=== PATIENT | male | born 1985 | race Caucasian/White ===

== ENCOUNTER → 2020-03-11 15:16 | Outpatient (CLI) | payer OTHER, SELFPAY ==
--- NOTE | ~2020-03-11 | US_ITS ---
EXAMINATION: US soft tissue head and neck DATE: 03/11/2020 15:49 INDICATION: Localized swelling, mass or lump at the base of the left neck/supraclavicular region. TECHNIQUE: Multiple grayscale and Doppler ultrasound images of the neck at the region of concern were obtained. COMPARISON: None FINDINGS/IMPRESSION: No discrete masses or fluid collections identified at the region of concern. Reviewed, dictated and finalized at location [facility]. [facility] [employer]
== END ==
PROVIDERS: PCP Nurse Practitioner; Visit Provider Nurse Practitioner
DX: R22.1 Localized swelling, mass and lump, neck (principal)
CPT/HCPCS: 76536

== ENCOUNTER 2020-03-22 00:29 | Outpatient (CLI) | payer OTHER, SELFPAY ==
[2020-03-23 00:21] LABS: SARS-CoV-2 RNA PCR Negative
== END 2020-03-22 00:30 | disposition home or self-care (01) ==
LOC: ANHCOVIDDT 00:29
PROVIDERS: PCP Nurse Practitioner; Visit Provider Otolaryngology
DX: Z01.812 Encounter for preprocedural laboratory examination (principal); Z20.822 Contact with and (suspected) exposure to COVID-19
CPT/HCPCS: C9803; U0003; U0005

== ENCOUNTER 2020-03-25 01:06 | Day surgery (SDC) | payer OTHER, SELFPAY ==
[2020-03-19 09:11] VITALS: BMI 33.4
--- NOTE | 2020-03-24 09:02 | P.PNAN_ITS ---
Anes - Initial Pre Proc Eval Procedure: Operation Date: 03/25/20 14:00 Proposed Procedures p Septoplasty, - Luisito Devlin MD s Anterior Posterior Ethmoidectomy, Bilateral Maxilary Antrostomy - Luisito Devlin MD Date/Time: 03/24/20 09:02 Surgeon: Luisito Devlin MD Pre Op Diagnosis: Nasal Septal Deviation, Chronic Sinusitis Patient Data Age: 34 Gender: M Height: 1.88 m Weight: 118.18 kg Allergies Allergy/AdvReac Type Severity Reaction Status Date / Time No Known Allergies Allergy Verified 03/19/20 09:09 Home Medications Medication Instructions Recorded Confirmed Type fluoxetine 20 mg tablet 20 mg PO .COMPLEX 01/09/19 03/19/20 History clindamycin HCl 300 mg capsule 300 mg PO Q8H #30 cap 02/28/20 03/19/20 Rx fluticasone propionate [Flonase 1 spray NASAL DAILY PRN 03/19/20 03/19/20 History Allergy Relief] Patient hx anesthesia problems: none Family hx anesthesia problems: none PMFSH Past Medical History Medical History (Updated 03/24/20 @ 09:02 by Navneet Moulton DO) Hemorrhoids PTSD (post-traumatic stress disorder) Sleep apnea Surgical History Surgical History History of appendectomy (~2014) History of open reduction and internal fixation (ORIF) procedure (~2002) Left Femur History of toe surgery (~2014) Right 1st toe [place] teeth extracted Family History Family History Father Family history of cardiovascular disease Other Family history of malignant neoplasm Hypertension Malignant neoplasm of prostate Social History Social History Smoking packs per day: 1 Smoking cigarettes per day: 20.0 Years smoked: 6 Smoking pack-years: 6.00 Smoking status: Former smoker Tobacco type: cigarettes Second hand tobacco smoke exposure: No Additional smoking assessment comments: QUIT NOV 2019 Alcohol intake: current Drinks per week: 15 Substance use: never Substance use type: does not use Living arrangements: with family Gender identity (if verbalized by the patient): Male Spiritual care concerns: No Anes - Eval Final PreProcedure Day of Procedure 03/24/20 09:02 Patient weight: obese Heart: regular rate and rhythm Lungs: clear to auscultation and normal air movement Airway: Mallampati scale class II Neurological: alert and oriented Last oral intake: >/= 8 hours ASA classification: III Emergent: no Anesthetic plan: proceed Anesthesia type and monitoring: general ETT and standard monitoring Informed Consent: The patient's anesthetic plan and its attendant risks and benefits were discussed with the patient/family/POA. Questions were solicited and answers provided to the satisfaction of the patient/family/POA.
[2020-03-25] VITALS (10 sets, daily range): BP systolic 101–136; BP diastolic 52–93; PULSE 74–102; RESP 14–20; TEMP 36.8–37.1; O2SAT 95–100
--- NOTE | 2020-03-25 06:09 | PM.HPGS ---
History of Present Illness History of Present Illness Consent: Risks, benefits, and alternatives have been discussed and questions answered. Patient agrees to proceed with procedure. Chief complaint: Nasal Septal Deviation, Chronic Sinusitis Narrative: Bala Pena is a 34 year old male With recurring episodes of sinusitis he has difficulty breathing out of his nose he needs a septoplasty and anterior posterior ethmoid maxillary antrostomy Review of Systems Review of Systems: All systems reviewed & are unremarkable except as noted in HPI and below PMFSH Past Medical History Medical History (Updated 03/24/20 @ 09:02 by Navneet Moulton, ) Hemorrhoids PTSD (post-traumatic stress disorder) Sleep apnea Surgical History Surgical History History of appendectomy (~2014) History of open reduction and internal fixation (ORIF) procedure (~2002) Left Femur History of toe surgery (~2014) Right 1st toe [place] teeth extracted Family History Family History Father Family history of cardiovascular disease Other Family history of malignant neoplasm Hypertension Malignant neoplasm of prostate Social History Social History Smoking packs per day: 1 Smoking cigarettes per day: 20.0 Years smoked: 6 Smoking pack-years: 6.00 Smoking status: Former smoker Tobacco type: cigarettes Second hand tobacco smoke exposure: No Additional smoking assessment comments: QUIT NOV 2019 Alcohol intake: current Drinks per week: 15 Substance use: never Substance use type: does not use Living arrangements: with family Gender identity (if verbalized by the patient): Male Spiritual care concerns: No Meds Home Medications and Allergies Home Medications Medication Instructions Recorded Confirmed Type fluoxetine 20 mg tablet 20 mg PO .COMPLEX 01/09/19 03/19/20 History clindamycin HCl 300 mg capsule 300 mg PO Q8H #30 cap 02/28/20 03/19/20 Rx fluticasone propionate [Flonase 1 spray NASAL DAILY PRN 03/19/20 03/19/20 History Allergy Relief] Allergies Allergy/AdvReac Type Severity Reaction Status Date / Time No Known Allergies Allergy Verified 03/19/20 09:09 Assessment and Plan Additional Plan Plan is a nasal septoplasty and anterior posterior ethmoidectomy maxillary antrostomy
--- NOTE | 2020-03-25 06:10 | WPDHPUPDATE1 ---
History and Physical Update Update Date/Time: 03/25/20 06:10 History and Physical has been reviewed, including an updated exam of the patient. There are NO changes in the patient's condition. Risks, benefits, and alternatives have been discussed and questions answered. Patient agrees to proceed with procedure.
[2020-03-25] MEDS: ACETAMINOPHEN 500 MG TABLET 1000 MG PO (11:31)
[2020-03-25] MEDS: LACTATED RINGERS 1,000 ML 30 ML IV CONT ×2 (11:35→12:49)
[2020-03-25] MEDS: LIDO 1%/EPINEPHRINE 1:100,000 50 ML VIAL 13 ML INFILTRATE (12:44)
--- NOTE | 2020-03-25 12:45 | PM.PROC ---
Procedure Note - Detailed Date of procedure: 03/25/20 Pre-op diagnosis: Nasal Septal Deviation, Chronic Sinusitis Post-op diagnosis: same Procedure performed: Septoplasty bilateral maxillary antrostomy bilateral anterior ethmoid Description of procedure: Patient was prepped and draped fashion anesthesia cocaine impregnated cottonoids were placed in the nose injected xylocaine with adrenaline a right juan pablo transection was made left anterior and posterior tunnels elevated the bony cartilaginous septum was removed and the bony deviation removed with small chisel a very hard bone ring spur was chiseled off this swelling the cartilage bony remnants of the midline incision closed with 4 0 chromic and Vo splints placed in by above the inferior turbinates on both sides were outfractured nasal antral windows were created a small anterior ethmoid openings were placed on both sides after the Vo splint was sutured in the patient was awakened returned to recovery in good condition Anesthesia: GLMA Surgeon: Luisito Devlin MD Estimated blood loss (mL): 10 Drains: No Packing: Yes Pathology: none sent Complications: No immediate complications Condition: stable Disposition: PACU Findings: Septal deviation
== END 2020-03-25 14:37 | disposition home or self-care (01) ==
PROVIDERS: PCP Nurse Practitioner; Visit Provider Otolaryngology
PROC: (CPT 30520; principal; 2020-03-25 14:00)
PROC: (CPT 31254; 2020-03-25 14:00)
DX: J34.2 Deviated nasal septum (principal); J32.9 Chronic sinusitis, unspecified; G47.33 Obstructive sleep apnea (adult) (pediatric); F43.10 Post-traumatic stress disorder, unspecified; Z87.891 Personal history of nicotine dependence; E66.9 Obesity, unspecified; Z68.33 Body mass index [BMI] 33.0-33.9, adult
CPT/HCPCS: 31254; 31256; 30520; A9270; J0330; J1100; J2250; J2405; J2704; J3010; J7120

== ENCOUNTER 2020-05-08 10:24 | Outpatient (CLI) | payer OTHER, SELFPAY ==
--- NOTE | 2020-05-08 10:42 | EST_ITS ---
Patient Info Name: Bala Pena Age: 34 years : 1985 Gender: Male Ht: 74 in Wt: 260 lbs BSA: 2.52 m2 Exam Date: 05/08/2020 11:08 AM Exam Location: [facility] Patient Status: Outpatient Admit Date: 05/08/2020 Staff Ordering Physician: Homa Bañuelos NP Attending Provider: Aden Olivier MD Exercise Technologist: Valentino Munroe RDCS, RT Exercise Physician: Johnnie Hobson DO Exam Type: CA stress test treadmill Study Info A treadmill exercise stress test was performed. Summary 1. 1. Negative Jordan exercise stress test for ischemic ST changes by ECG criteria. 2. 2. Mildly reduced functional capacity, achieving 10 METs of workload. 3. 3. Hypertensive response to exercise. 4. 4. Appropriate HR response to exercise. 5. 5. Appropriate HR recovery at 1 minute post exercise. 6. 6. No imaging with stress testing. 7. 7. Patient informed of the above results. Protocol: [facility] Stress ECG Details Stage: REST Duration (min): 1 min : 51 sec Speed (mph): 0.0 Grade (%): 0 HR (bpm): 80 SBP (mmHg): --- DBP (mmHg): --- METS: --- Stage: REST Duration (min): 8 min : 48 sec Speed (mph): 0.0 Grade (%): 0 HR (bpm): 79 SBP (mmHg): --- DBP (mmHg): --- METS: --- Stage: STAGE 1 Duration (min): 1 min : 0 sec Speed (mph): 1.7 Grade (%): 10 HR (bpm): 117 SBP (mmHg): --- DBP (mmHg): --- METS: --- Stage: STAGE 1 Duration (min): 2 min : 0 sec Speed (mph): 1.7 Grade (%): 10 HR (bpm): 132 SBP (mmHg): --- DBP (mmHg): --- METS: --- Stage: STAGE 1 Duration (min): 3 min : 0 sec Speed (mph): 1.7 Grade (%): 10 HR (bpm): 133 SBP (mmHg): 171 DBP (mmHg): 65 METS: --- Stage: STAGE 2 Duration (min): 1 min : 0 sec Speed (mph): 2.5 Grade (%): 12 HR (bpm): 143 SBP (mmHg): 171 DBP (mmHg): 65 METS: --- Stage: STAGE 2 Duration (min): 2 min : 0 sec Speed (mph): 2.5 Grade (%): 12 HR (bpm): 151 SBP (mmHg): 183 DBP (mmHg): 53 METS: --- Stage: STAGE 2 Duration (min): 3 min : 0 sec Speed (mph): 2.5 Grade (%): 12 HR (bpm): 157 SBP (mmHg): 183 DBP (mmHg): 53 METS: --- Stage: STAGE 3 Duration (min): 1 min : 0 sec Speed (mph): 3.4 Grade (%): 14 HR (bpm): 169 SBP (mmHg): 183 DBP (mmHg): 53 METS: --- Stage: STAGE 3 Duration (min): 2 min : 0 sec Speed (mph): 3.4 Grade (%): 14 HR (bpm): 173 SBP (mmHg): 217 DBP (mmHg): 63 METS: --- Stage: STAGE 3 Duration (min): 3 min : 0 sec Speed (mph): 3.4 Grade (%): 14 HR (bpm): 181 SBP (mmHg): 227 DBP (mmHg): 91 METS: --- Stage: RECOVERY Duration (min): 1 min : 0 sec Speed (mph): 0.0 Grade (%): 0 HR (bpm): 146 SBP (mmHg): 227 DBP (mmHg): 91 METS: --- Stage: RECOVERY Duration (min): 2 min : 0 sec Sp
== END 2020-05-08 10:25 | disposition home or self-care (01) ==
LOC: ANHCARD 10:25
PROVIDERS: PCP Nurse Practitioner; Visit Provider Family Medicine
DX: R07.9 Chest pain, unspecified (principal)
CPT/HCPCS: 93017

== ENCOUNTER → 2020-07-19 02:10 | Outpatient (CLI) | payer OTHER, SELFPAY ==
[2020-07-19 19:56] LABS: SARS-CoV-2 RNA PCR Negative
== END ==
PROVIDERS: PCP Nurse Practitioner; Visit Provider Internal Medicine Gastroenterology
DX: Z01.812 Encounter for preprocedural laboratory examination (principal); Z20.822 Contact with and (suspected) exposure to COVID-19
CPT/HCPCS: C9803; U0003; U0005

== ENCOUNTER 2020-07-23 02:34 | Day surgery (SDC) | payer OTHER, SELFPAY ==
[2020-07-11 14:35] VITALS: BMI 32.8
--- NOTE | 2020-07-23 11:39 | WPDANESEPPF ---
Anes - Initial Pre Proc Eval Procedure: Operation Date: 07/23/20 12:45 Proposed Procedures p Colonoscopy - Hawk Marino MD Date/Time: 07/23/20 11:39 Surgeon: Hawk Marino MD Pre Op Diagnosis: change in bowel habits,loose stools Patient Data Age: 34 Gender: M Height: 6 ft 2 in Weight: 116 kg Allergies Allergy/AdvReac Type Severity Reaction Status Date / Time No Known Allergies Allergy Verified 07/23/20 11:38 Home Medications Medication Instructions Recorded Confirmed Type azelastine 137 mcg (0.1 %) nasal 1 spray INTRANASAL Q12H #30 ml 06/18/20 07/23/20 Rx spray aerosol fluticasone propionate 50 1 spray INTRANASAL BID #16 ml 06/18/20 07/23/20 Rx mcg/actuation nasal spray,suspension omeprazole 20 mg capsule,delayed 20 mg PO DAILY #20 cap 06/18/20 07/23/20 Rx release fluoxetine 60 mg PO DAILY 07/11/20 07/23/20 History Patient hx anesthesia problems: none Family hx anesthesia problems: none PMFSH Past Medical History Medical History Hemorrhoids PTSD (post-traumatic stress disorder) Sleep apnea Surgical History Surgical History H/O sinus surgery (~03/23/20) History of appendectomy (~2014) History of open reduction and internal fixation (ORIF) procedure (~2002) Left Femur History of toe surgery (~2014) Right 1st toe [employer] teeth extracted Family History Family History Father Family history of cardiovascular disease Other Family history of malignant neoplasm Hypertension Malignant neoplasm of prostate Social History Social History Smoking packs per day: 1 Smoking cigarettes per day: 20.0 Years smoked: 7 Smoking pack-years: 7.00 Smoking status: Former smoker Tobacco type: cigarettes Second hand tobacco smoke exposure: No Additional smoking assessment comments: QUIT NOV 2019 Alcohol intake: current Drinks per week: 20 Substance use: never Substance use type: does not use Living arrangements: with family Gender identity (if verbalized by the patient): Female Spiritual care concerns: No Anes - Eval Final PreProcedure Day of Procedure 07/23/20 11:39 Patient weight: obese Heart: regular rate and rhythm Lungs: clear to auscultation Airway: Mallampati scale class II Neurological: alert and oriented Last oral intake: >/= 8 hours ASA classification: III Emergent: no Anesthetic plan: proceed Anesthesia type and monitoring: general GIVS and standard monitoring Informed Consent: The patient's anesthetic plan and its attendant risks and benefits were discussed with the patient/family/POA. Questions were solicited and answers provided to the satisfaction of the patient/family/POA.
[2020-07-23 11:40] VITALS: BP 136/93; PULSE 80; RESP 18; TEMP 36.4; O2SAT 100; BMI 32.8
[2020-07-23] MEDS: LACTATED RINGERS 1,000 ML 150 ML IV CONT (11:56)
--- NOTE | 2020-07-23 12:00 | PM.HPGS ---
History of Present Illness History of Present Illness Consent: Risks, benefits, and alternatives have been discussed and questions answered. Patient agrees to proceed with procedure. Chief complaint: change in bowel habits,loose stools Narrative: Bala Pena is a 34 year old male with intermittent loose stool for few months, never had a colonoscopy Review of Systems Constitutional: Constitutional: Denies headache(s) and Denies weakness Eyes: Eyes: Denies blurry vision ENT: Reports Normal hearing present, Denies headache(s) and Denies neck pain Cardiovascular: Cardiovascular: Denies chest pain and Denies dyspnea Respiratory: Respiratory: Denies dyspnea Gastrointestinal: Gastrointestinal: Reports no additional gastrointestinal complaints Genitourinary: Genitourinary: Denies dysuria Musculoskeletal: Musculoskeletal: Denies neck pain Integumentary/Breasts: Skin/Breast: Denies dry skin Neurologic: Reports Normal hearing present, Denies headache(s) and Denies weakness Psychiatric: Psychiatric: Denies anxiety Endocrine: Endocrine: Denies change in body appearance Hematologic/Lymphatic: Hematologic/Lymphatic: Denies easy bleeding Allergic/Immunologic: Allergic/Immunologic: Denies urticaria PMFSH Past Medical History Medical History Hemorrhoids PTSD (post-traumatic stress disorder) Sleep apnea Surgical History Surgical History H/O sinus surgery (~03/23/20) History of appendectomy (~2014) History of open reduction and internal fixation (ORIF) procedure (~2002) Left Femur History of toe surgery (~2014) Right 1st toe [place] teeth extracted Family History Family History Father Family history of cardiovascular disease Other Family history of malignant neoplasm Hypertension Malignant neoplasm of prostate Social History Social History Smoking packs per day: 1 Smoking cigarettes per day: 20.0 Years smoked: 7 Smoking pack-years: 7.00 Smoking status: Former smoker Tobacco type: cigarettes Second hand tobacco smoke exposure: No Additional smoking assessment comments: QUIT NOV 2019 Alcohol intake: current Drinks per week: 20 Substance use: never Substance use type: does not use Living arrangements: with family Gender identity (if verbalized by the patient): Female Spiritual care concerns: No Meds Home Medications and Allergies Home Medications Medication Instructions Recorded Confirmed Type azelastine 137 mcg (0.1 %) nasal 1 spray INTRANASAL Q12H #30 ml 06/18/20 07/23/20 Rx spray aerosol fluticasone propionate 50 1 spray INTRANASAL BID #16 ml 06/18/20 07/23/20 Rx mcg/actuation nasal spray,suspension omeprazole 20 mg capsule,delayed 20 mg PO DAILY #20 cap 06/18/20 07/23/20 Rx release fluoxetine 60 mg PO DAILY 07/11/20 07/23/20 History Allergies Allergy/AdvReac Type Severity Reaction Status Date / Time No Known Allergies Allergy Verified 07/23/20 11:38 Vital Signs Vital Signs - 24 hr 07/23/20 11:40 Temperature 97.6 F Pulse Rate 80 Respiratory Rate 18 Blood Pressure 136/93 H Pulse Oximetry 100 Exam Const: General: comfortable and no acute distress HENMT: General nose exam: Normal nares present Eyes: General: appearance normal, both eyes and all related structures Neck: Neck: no JVD Resp: Auscultation: clear to auscultation bilaterally Cardio: Rate: regular rate Rhythm: regular rhythm GI: Inspection: non-distended GI Palp: Yes Soft to palpation Skin: General skin exam: normal color Neuro: General: gait normal Speech: normal speech Extrem: General: normal to inspection Psych: Mental Status: mental status grossly normal Assessment and Plan Assessment and plan (1) Loose stool
[2020-07-23 12:22] VITALS: BP 93/59; PULSE 72; RESP 33; O2SAT 95
[2020-07-23 12:32] VITALS: BP 104/70; PULSE 75; RESP 24; O2SAT 99
[2020-07-23 12:42] VITALS: BP 140/89; PULSE 74; RESP 26; O2SAT 100
== END 2020-07-23 12:52 | disposition home or self-care (01) ==
PROVIDERS: PCP Nurse Practitioner; Visit Provider Internal Medicine Gastroenterology
PROC: 0DJD8ZZ Inspection of Lower Intestinal Tract, Via Natural or Artificial Opening Endoscopic (ICD-10-PCS; CPT 45378; principal; 2020-07-23 12:45)
DX: R19.4 Change in bowel habit (principal); K52.9 Noninfective gastroenteritis and colitis, unspecified; K62.89 Other specified diseases of anus and rectum; K64.8 Other hemorrhoids; G47.30 Sleep apnea, unspecified; F43.10 Post-traumatic stress disorder, unspecified; Z87.891 Personal history of nicotine dependence
CPT/HCPCS: 45380; 88305; J2001; J2704; J7120

== ENCOUNTER → 2021-01-07 07:58 | Outpatient (CLI) | payer OTHER, SELFPAY ==
[2021-01-07 18:11] LABS: SARS-CoV-2 RNA PCR Negative
== END ==
PROVIDERS: PCP Nurse Practitioner; Visit Provider Nurse Practitioner Family
DX: R68.89 Other general symptoms and signs (principal); Z20.822 Contact with and (suspected) exposure to COVID-19
CPT/HCPCS: C9803; U0003; U0005

== ENCOUNTER 2021-11-26 09:08 | Outpatient (CLI) | payer OTHER, SELFPAY ==
--- NOTE | 2021-11-26 13:28 | WPDPFTINT ---
PFT Procedure Performed PFT Procedure Performed Spirometry with Pre/Post Bronchodilator Plethysmography (Lung Vol) Diffusing Cap (DLCO) Flow Vol Loop PFT Interpretation This is a pulmonary function test with pre and post-bronchodilator spirometry, plethysmography and diffusing capacity. The test was performed and results interpreted in accordance with the 2019 and 2005 ATS/ERS Task Force guidelines respectively using the Global Lung Function Initiative-2012 reference equations. Patient demonstrated good effort and cooperation. Reproducibility criteria were met. The quality of the pre bronchodilator spirometry maneuver was Grade A and post bronchodilator spirometry maneuver was Grade A. Findings: Spirometry: The contour the inspiratory expiratory flow tracing are normal. The pre bronchodilator FVC is 4.99 L, 82% predicted. The pre bronchodilator FEV1 is 4.11 L, 84% predicted. The pre bronchodilator FEV1: FVC ratio was 82%. The post bronchodilator FVC is 5.12 L, representing a 2% increase. The post bronchodilator FEV1 is 4.44 L, representing an 8% increase. The post bronchodilator FEV1: FVC ratio was 87%. Plethysmography: The total lung capacity is 6.04 L, 78% predicted. The functional residual capacity is 1.95 L, 50% predicted. The residual volume is 1.05 L, 53% predicted. Diffusion capacity: The diffusing capacity unadjusted for hemoglobin and carboxyhemoglobin is 37.0, 104% predicted. The diffusing capacity adjusted for alveolar volume is 6.49, 136% predicted. Impression: There is a mild restrictive ventilatory abnormality with a normal FEV1. The spirometry is normal without evidence of an obstructive abnormality. There is no significant improvement after inhaling a single dose of albuterol. The diffusing capacity unadjusted for hemoglobin and carboxyhemoglobin is normal and is increased when adjusted for alveolar volume. There are no prior studies for comparison
== END 2021-11-26 09:09 | disposition home or self-care (01) ==
PROVIDERS: PCP Family Medicine; Visit Provider Nurse Practitioner
DX: R06.02 Shortness of breath (principal); Z87.891 Personal history of nicotine dependence; R94.2 Abnormal results of pulmonary function studies
CPT/HCPCS: 94060; 94726; 94729

== ENCOUNTER 2021-12-12 12:55 | Inpatient (IN) | payer OTHER, SELFPAY ==
--- NOTE | ~2021-12-12 | XR_ITS ---
EXAM: XR femur RT min 2V DATE: 12/12/2021 16:02 HISTORY: right thigh erythema,edema dist, med Rt thigh,onset x 6 days . COMPARISON: None available. FINDINGS: Normal mineralization. No fracture or dislocation. No lytic or blastic lesion. Joint space s are maintained. No erosion or periosteal change. Soft tissues within normal limits. IMPRESSION: No acute osseous finding in the right femur. Reviewed, dictated and finalized at location K.
--- NOTE | ~2021-12-12 | US_ITS ---
EXAMINATION: US abdomen limited DATE: 12/15/2021 09:51 INDICATION: Abnormal liver function tests. TECHNIQUE: Multiple grayscale and Doppler ultrasound images of the abdomen were obtained. COMPARISON: None FINDINGS: The visualized portions of the head of the pancreas is normal. There is diffuse hepatic ian atosis. No liver surface nodularity. There is normal flow in main portal vein. The gallbladder is nor mal in size. No gallstones or gallbladder wall thickening. There was no sonographic Munroe sign. The common duct is normal and measures 3 mm. IMPRESSION: 1. Diffuse hepatic steatosis. Reviewed, dictated and finalized at location B.
[2021-12-12 13:03] VITALS: BP 148/83; PULSE 90; RESP 18; TEMP 36.1; O2SAT 100
--- NOTE | 2021-12-12 15:11 | ED.WOUNDLAC ---
HPI - Wound/Laceration General Chief Complaint: Wound/Laceration <ZEHRA Moreno Last Filed: 12/12/21 18:10> Stated Complaint: wound recheck <ZEHRA Moreno Last Filed: 12/12/21 18:10> Time Seen by Provider: 12/12/21 14:46 <ZEHRA Moreno Last Filed: 12/12/21 18:10> Source: patient <ZEHRA Moreno Last Filed: 12/12/21 18:10> Mode of arrival: ambulatory <ZEHRA Moreno Last Filed: 12/12/21 18:10> Limitations: no limitations <ZEHRA Moreno Last Filed: 12/12/21 18:10> History of Present Illness HPI narrative: This is a 36 year old male that presents to the ER for worsening cellulitis over the last 5 days. Reports he noted a small area of redness to the right inner thigh. The next day he was seen at Urgent care and started on Bactrim. Reports he continued to have worsening redness and swelling so he went to be evaluated in the ER. Was given a dose of IV antibiotics and discharged with addition of Doxycycline. Reports he has also started to develop fevers. <ZEHRA Moreno Last Filed: 12/12/21 18:10> Related Data Home Medications: Home Medications Medication Instructions Recorded Confirmed fluoxetine 60 mg tablet 60 mg PO DAILY 09/15/21 12/12/21 azelastine 137 mcg (0.1 %) nasal 1 spray intranasal Q12H PRN 12/12/21 12/12/21 spray aerosol Congestion <ZEHRA Moreno Last Filed: 12/12/21 18:10> Allergies/Adverse Reactions: Allergies Allergy/AdvReac Type Severity Reaction Status Date / Time No Known Allergies Allergy Verified 12/12/21 19:35 <ZEHRA Moreno Last Filed: 12/12/21 18:10> Review of Systems Review of Systems: CONSTITUTIONAL: Reports fever SKIN: Reports erythema and edema <ZEHRA Moreno Last Filed: 12/12/21 18:10> All systems reviewed & are unremarkable except as noted in HPI and below <Lety Kwon PA-C - Last Filed: 12/12/21 18:10> PMFSH Past Medical History Medical History: Medical History (Updated 12/12/21 @ 19:46 by Eileen Chairez PA-C) Normal cardiac stress test Obstructive sleep apnea <Lety Kwon PA-C - Last Filed: 12/12/21 18:10> Surgical History Surgical History: Surgical History (Updated 12/12/21 @ 16:41 by Eileen Chairez PA-C) History of appendectomy (2014) History of open reduction and internal fixation (ORIF) procedure (2002) Repair right femur fracture. History of sinus surgery (03/23/20) History of toe surgery (2014) Right hallux cheilectomy and MTP arthrodesis. [place] teeth extracted <Lety Kwon PA-C - Last Filed: 12/12/21 18:10> Family History Family History: Family History Father Family history of cardiovascular disease Other Family history of malignant neoplasm Hypertension Malignant neoplasm of prostate <Lety Kwon PA-C - Last Filed: 12/12/21 18:10> Social History Social History: Social History (Updated 12/12/21 @ 19:47 by Eileen Chairez PA-C) Social History: Surrogate medical decision maker: Kari Pena, spouse. Code status: Full code. Smoking packs per day: 1 Smoking cigarettes per day: 20.0 Years smoked: 7 Smoking pack-years: 7.00 Smoking status: Former smoker Tobacco type: cigarettes Second hand tobacco smoke exposure: No Additional smoking assessment comments: Quit November 2019. Alcohol intake: current Drinks per week: 20 Alcohol use details: He drinks beer several nights a week. Substance use: never Substance use type: does not use Additional living arrangements comments: Lives in [place] with spouse and children. Spiritual care concerns: No <Lety Kwon PA-C - Last Filed: 12/12/21 18:10> Exam Narrative: GENERAL: Well-appearing, well-nourished, and in no acute distress. HEAD: Normocephalic, atraumatic. EYES: EOMI. CHEST: Clear to auscultatio
[2021-12-12 15:18] LABS: Basophils Absolute Auto 0.1 K/mm3 (0.0-0.1); Basophils Percent Auto 0.6 % (0.2-1.2); Eosinophils Absolute Auto 0.1 K/mm3 (0-0.3); Eosinophils Percent Auto 1.5 % (0-4.4); Hematocrit 42.5 % (42.0-52.0); Hemoglobin 14.7 g/dL (14.0-18.0); Immature Granulocyte Absolute 0.03 K/mm3 (0.00-0.031); Immature Granulocyte Percent A 0.4 % (0-0.5); Lymphocytes Absolute Auto 1.33 K/mm3 (0.9-3.2); Lymphocytes Percent Auto 16.7 % (18.3-44.2); Mean Corpuscular HGB Conc 34.6 g/dl (32-36); Mean Corpuscular Hemoglobin 31.5 pg (26-34); Mean Corpuscular Volume 91.2 fl (80-100); Mean Platelet Volume 8.8 fl (7.4-10.4); Monocytes Absolute Auto 0.7 K/mm3 (0.1-0.6); Monocytes Percent Auto 8.4 % (2.6-8.5); Neutrophils Absolute Auto 5.8 K/mm3 (1.3-6.7); Neutrophils Percent Auto 72.4 % (45.5-73.1); Platelet Count Result 339 k/mm3 (150-375); Red Blood Count 4.66 M/mm3 (4.6-6.20); Red Cell Distribution Width 11.5 % (11.5-14.5)
[2021-12-12 15:25] LABS: Lactic Acid Reflex 1.4 mmol/L (0.7-2.0)
[2021-12-12 15:31] LABS: Anion Gap 12 mmol/L (8-16); Blood Urea Nitrogen 12 mg/dL (9-20); CRP 3.6 mg/dL (<1.0); Calcium 9.7 mg/dL (8.4-10.2); Carbon Dioxide 27 mmol/L (22-30); Chloride 102 mmol/L (98-107); Estimated CRCL calculation 114 ml/min; Estimated Glomerular Filt Rate > 60; Glucose 102 mg/dL (65-110); Potassium 3.9 mmol/L (3.4-5.0); Sodium 141 mmol/L (137-145)
[2021-12-12 15:44] LABS: Erythrocyte Sedimentation Rate 18 mm/hr (0-20)
--- NOTE | 2021-12-12 17:00 | PM.IMHP ---
H&P: HPI History of Present Illness Date/Time: 12/12/21 17:00 Chief Complaint: Worsening cellulitis. Narrative: This is a very pleasant 36-year-old male who presented to the emergency department via private vehicle from home for evaluation of worsening cellulitis of the right thigh. Last Tuesday he noticed what appeared to be a pimple on the medial aspect of the right leg just above the knee. He assumed he was bitten by a spider the previous day while out fishing though he cannot be certain. The next day it had increased in size and was red and tender to touch. He was seen at a local urgent care and was prescribed Bactrim of which he states compliance however the area continued to increase in size and became more painful as the days progressed. He was seen in the ED at [facility] a couple of days ago after he developed a temperature of 101? and he was prescribed doxycycline to take in addition to the Bactrim. Unfortunately the area has not improved and in fact it has continued to spread. He is still running fevers and he came back in for evaluation. He is being admitted in this setting for IV antibiotics. He has no known history of MRSA. Review of Systems Review of Systems: Twelve systems were reviewed. He has been taking Tylenol for his fever and throbbing pain related to the infection. No cold or flu symptoms. He denies nausea, vomiting, and diarrhea. No numbness or tingling of the extremity. Except as documented, all other systems were reviewed and are negative. [facility] Past Medical History Medical History (Updated 12/12/21 @ 19:46 by Eileen Chairez PA-C) Normal cardiac stress test Obstructive sleep apnea Surgical History Surgical History (Updated 12/12/21 @ 16:41 by Eileen Chairez PA-C) History of appendectomy (2014) History of open reduction and internal fixation (ORIF) procedure (2002) Repair right femur fracture. History of sinus surgery (03/23/20) History of toe surgery (2014) Right hallux cheilectomy and MTP arthrodesis. [place] teeth extracted Family History Family History Father Family history of cardiovascular disease Hypertension Grandparent Malignant neoplasm of prostate Hypertension Grandparent No problems noted. Social History Social History (Updated 12/12/21 @ 19:47 by Eileen Chairez PA-C) Social History: Surrogate medical decision maker: Kari Pena, spouse. Code status: Full code. Smoking packs per day: 1 Smoking cigarettes per day: 20.0 Years smoked: 7 Smoking pack-years: 7.00 Smoking status: Former smoker Tobacco type: cigarettes Second hand tobacco smoke exposure: No Additional smoking assessment comments: Quit November 2019. Alcohol intake: current Drinks per week: 28 Alcohol use details: He drinks beer several nights a week. Substance use: never Substance use type: does not use Additional living arrangements comments: Lives in [place] with spouse and children. Spiritual care concerns: No Meds Home Medications and Allergies Home Medications Medication Instructions Recorded Confirmed Type fluticasone propionate 50 1 spray intranasal BID #16 mL 06/18/20 12/12/21 Rx mcg/actuation nasal spray,suspension (Flonase Allergy Relief) fluoxetine 60 mg tablet 60 mg PO DAILY 09/15/21 12/12/21 History azelastine 137 mcg (0.1 %) nasal 1 spray intranasal Q12H PRN 12/12/21 12/12/21 History spray aerosol Congestion Allergies Allergy/AdvReac Type Severity Reaction Status Date / Time No Known Allergies Allergy Verified 12/12/21 19:35 Vital Signs Vital Signs - 24 hr 12/12/21 13:03 Temperature 97.0 F L Pulse Rate 90 Respiratory Rate 18 Blood Pressure 148/83 H Pulse Oximetry 100 Oxygen Delivery Room Air Exam Narrative: General: Well-developed, nontoxic-appearing male sitting up in bed. Weight: 122 kilograms. BMI: 34.5. HEENT: PERRL, EOMI
--- NOTE | 2021-12-12 19:20 | ADMGEN ---
This patient, Bala Pena, was admitted to 2 Medical Room 260-. Patient/family oriented to hospital policies and general routines including ID bracelet, bed and alarms, visiting hours, pain management, procedures, bathroom and other care routines, personal items, smoking policy, room service/diet, and visiting hours. Information on how to activate the Rapid Response Team has been discussed. Patient/Family are encouraged to report perceived risks to care and to ask questions if they do not understand what they are told or what they should do.
[2021-12-12 19:57] VITALS: BMI 35.3
[2021-12-12 20:36] VITALS: BP 143/85; PULSE 86; RESP 20; TEMP 36.9; O2SAT 100
[2021-12-13 04:31] VITALS: BP 124/57; PULSE 79; RESP 20; TEMP 36.4; O2SAT 97
[2021-12-13 06:02] LABS: Hematocrit 38.5 % (42.0-52.0); Hemoglobin 13.1 g/dL (14.0-18.0); Mean Corpuscular Hemoglobin 31.6 pg (26-34); Mean Platelet Volume 8.8 fl (7.4-10.4); Platelet Count Result 312 k/mm3 (150-375); Red Blood Count 4.14 M/mm3 (4.6-6.20); Red Cell Distribution Width 11.5 % (11.5-14.5); White Blood Count 6.8 K/mm3 (4.5-10.0)
[2021-12-13 06:25] LABS: Anion Gap 15 mmol/L (8-16); Blood Urea Nitrogen 9 mg/dL (9-20); Calcium 8.1 mg/dL (8.4-10.2); Carbon Dioxide 21 mmol/L (22-30); Chloride 99 mmol/L (98-107); Estimated CRCL calculation 140 ml/min; Estimated Glomerular Filt Rate > 60; Glucose 122 mg/dL (65-110); Magnesium 2.1 mg/dL (1.6-2.3); Potassium 3.8 mmol/L (3.4-5.0); Sodium 135 mmol/L (137-145)
--- NOTE | 2021-12-13 07:55 | PM.IMPN ---
Progress Note: A&P Assessment and Plan (1) Cellulitis of right thigh: Code(s): L03.115 - Cellulitis of right lower limb Status: Acute Assessment and Plan: Continue vancomycin and Rocephin, follow up on wound and blood cultures (2) Depression: Code(s): F32.A - Depression, unspecified Status: Acute Assessment and Plan: Continue Prozac (3) Allergic rhinitis: Code(s): J30.9 - Allergic rhinitis, unspecified Status: Acute Assessment and Plan: Continue Flonase, Claritin as needed, azelastine as needed Plan DVT prophylaxis with Lovenox GI prophylaxis not indicated Code status full code Subjective Date/time seen: 12/13/21 07:55 Interval history: No overnight events noted. No chest pain or shortness of breath. No nausea, vomiting or diarrhea. Patient states he feels much better when he came in. He did have a fever and some chills last night. Nothing today at. Review of Systems Review of Systems: 12 point review of systems was assessed and was negative except as noted in the HPI Exam Narrative: General: No acute distress, alert and oriented per baseline HEENT: Atraumatic, normocephalic, mucous membranes moist CV: Regular rate and rhythm, S1, S2 Lungs: Clear to auscultation bilaterally, no rales or crackles noted, no wheezes, good air entry Abdomen: Soft, nontender, nondistended Extremities: Normal to inspection Skin: Significant erythema of the right thigh, appears to be less than yesterday based on the skin markings, there is a central area of fluctuance with serosanguineous and bloody drainage noted, somewhat warm to the touch Psych: Euthymic, normal affect Objective Data Vital Signs Vital Signs: Vital Signs - 24 hr 12/12/21 13:03 12/12/21 20:36 12/13/21 04:31 Temperature 97.0 F L 98.4 F 97.6 F Pulse Rate 90 86 79 Respiratory Rate 18 20 20 Blood Pressure 148/83 H 143/85 H 124/57 L Pulse Oximetry 100 100 97 Oxygen Delivery Room Air Intake/Output Intake/Output: Intake & Output 12/10/21 12/11/21 12/12/21 12/13/21 23:59 23:59 23:59 23:59 Intake Total 1150 800 Balance 1150 800 Meds/Results Medications: Active Medications Generic Name Dose Route Start Last Admin Trade Name Freq PRN Reason Stop Dose Admin Azelastine HCl 1 spray 12/12/21 21:00 Azelastine Hcl Nasal 0.1% 137 Mcg/Spr 30 Ml Btl NASAL Q12H PRN Congestion Enoxaparin Sodium 40 mg 12/13/21 09:00 Enoxaparin 40 Mg/0.4 Ml Syringe SUB-Q DAILY AUBREY Fluoxetine HCl 60 mg 12/13/21 09:00 Fluoxetine Hcl 20 Mg Capsule PO DAILY AUBREY Fluticasone Propionate 1 spray 12/13/21 09:00 Fluticasone Propionate 0.05% Na Spr 16 Gm Btl (*Bkc) NASAL BID AUBREY Cefazolin Sodium 1 gm in 50 mls @ 100 mls/hr 12/12/21 22:00 12/13/21 06:38 Ancef 1 Gm/D5w 50 Ml Pm IVPB Infused Q8H AUBREY Infusion Vancomycin HCl 1,750 mg in 500 mls @ 250 mls/hr 12/13/21 05:00 12/13/21 06:04 Vancomycin 1,750 Mg/D5w 500 Ml IVPB Infused Q12H AUBREY Infusion Radiology Results: ITS Impressions Femur X-Ray 12/12/21 16:20 IMPRESSION: No acute osseous finding in the right femur. Labs Labs: Laboratory Results - last 24 hr 12/12/21 12/12/21 12/12/21 15:07 15:07 15:08 WBC 8.0 RBC 4.66 Hgb 14.7 Hct 42.5 MCV 91.2 MCH 31.5 MCHC 34.6 RDW 11.5 Plt Count 339 MPV 8.8 Immature Gran % (Auto) 0.4 Neut % (Auto) 72.4 Lymph % (Auto) 16.7 L Archer % (Auto) 8.4 Eos % (Auto) 1.5 Baso % (Auto) 0.6 Lymph # (Auto) 1.33 Archer # (Auto) 0.7 H Eos # (Auto) 0.1 Baso # (Auto) 0.1 Abs Immat Gran (auto) 0.03 Absolute Neuts (auto) 5.8 Absolute Nucleated RBC 0.0 Nucleated RBC % 0.0 ESR 18 Sodium 141 Potassium 3.9 Chloride 102 Carbon Dioxide 27 Anion Gap 12 BUN 12 Creatinine 1.10 Estim Creat Clear Calc 114 Estimated GFR > 60 Glucose
[2021-12-13] MEDS: ENOXAPARIN 40 MG/0.4 ML SYRINGE SUB-Q (08:24)
[2021-12-13] MEDS: FLUoxetine HCL 20 MG CAPSULE 60 MG PO (08:24)
[2021-12-13] MEDS: FLUTICASONE PROPIONATE 0.05% NA SPR 16 GM BTL (*BKC) 1 SPRAY NASAL (08:25)
--- NOTE | 2021-12-13 08:33 | PC.NURSE ---
Left message with pharmacy about missing 0900 claritin. Will give when received from pharmacy
[2021-12-13] MEDS: LORATADINE 10 MG TABLET PO (09:58)
[2021-12-13 14:00] VITALS: BP 154/85; PULSE 83; RESP 14; TEMP 36.1; O2SAT 99
[2021-12-13 21:54] VITALS: BP 138/74; PULSE 83; RESP 17; TEMP 37.1; O2SAT 98
[2021-12-14 04:33] LABS: Basophils Absolute Auto 0.1 K/mm3 (0.0-0.1); Basophils Percent Auto 0.9 % (0.2-1.2); Eosinophils Absolute Auto 0.2 K/mm3 (0-0.3); Eosinophils Percent Auto 3.1 % (0-4.4); Hematocrit 40.1 % (42.0-52.0); Hemoglobin 13.7 g/dL (14.0-18.0); Immature Granulocyte Absolute 0.02 K/mm3 (0.00-0.031); Immature Granulocyte Percent A 0.4 % (0-0.5); Lymphocytes Absolute Auto 1.47 K/mm3 (0.9-3.2); Lymphocytes Percent Auto 27.2 % (18.3-44.2); Mean Corpuscular HGB Conc 34.2 g/dl (32-36); Mean Corpuscular Volume 90.7 fl (80-100); Mean Platelet Volume 8.7 fl (7.4-10.4); Monocytes Absolute Auto 0.6 K/mm3 (0.1-0.6); Monocytes Percent Auto 10.6 % (2.6-8.5); Neutrophils Absolute Auto 3.1 K/mm3 (1.3-6.7); Neutrophils Percent Auto 57.8 % (45.5-73.1); Platelet Count Result 323 k/mm3 (150-375); Red Blood Count 4.42 M/mm3 (4.6-6.20); Red Cell Distribution Width 11.4 % (11.5-14.5); White Blood Count 5.4 K/mm3 (4.5-10.0)
[2021-12-14 04:51] LABS: Alanine Aminotransferase 207 U/L (6-50); Albumin Level 4.4 g/dL (3.5-5.1); Alkaline Phosphatase 132 U/L (38-126); Anion Gap 8 mmol/L (8-16); Aspartate Amino Transferase 137 U/L (17-59); Bilirubin,Total 0.7 mg/dL (0.2-1.3); Blood Urea Nitrogen 12 mg/dL (9-20); Calcium 9.1 mg/dL (8.4-10.2); Carbon Dioxide 30 mmol/L (22-30); Chloride 101 mmol/L (98-107); Estimated CRCL calculation 116 ml/min; Estimated Glomerular Filt Rate > 60; Glucose 107 mg/dL (65-110); Potassium 3.7 mmol/L (3.4-5.0); Sodium 139 mmol/L (137-145)
[2021-12-14 05:15] VITALS: BP 117/70; PULSE 66; RESP 16; TEMP 36.5; O2SAT 98
[2021-12-14 05:35] LABS: Vancomycin Trough 8.6 ug/mL (10.0-20.0)
[2021-12-14] MEDS: FLUoxetine HCL 20 MG CAPSULE 60 MG PO (08:34)
[2021-12-14] MEDS: LORATADINE 10 MG TABLET PO (08:34)
[2021-12-14] MEDS: FLUTICASONE PROPIONATE 0.05% NA SPR 16 GM BTL (*BKC) 1 SPRAY NASAL ×2 (08:34→18:12)
[2021-12-14] MEDS: ENOXAPARIN 40 MG/0.4 ML SYRINGE SUB-Q (08:34)
[2021-12-14 13:05] VITALS: BP 138/74; PULSE 79; RESP 18; TEMP 36.4; O2SAT 98
[2021-12-14 19:29] LABS: Hepatitis B Surface Antigen Negative (Negative)
[2021-12-14 19:34] LABS: HAV RESULT Negative (Negative); Hepatitis B Core IgM Result Negative (Negative)
[2021-12-14 19:46] LABS: Hepatitis C Virus Antibody Negative (Negative)
[2021-12-14 22:50] VITALS: BP 134/77; PULSE 81; RESP 20; TEMP 36.3; O2SAT 98
[2021-12-15 05:40] LABS: Basophils Absolute Auto 0.1 K/mm3 (0.0-0.1); Basophils Percent Auto 1.1 % (0.2-1.2); Eosinophils Absolute Auto 0.1 K/mm3 (0-0.3); Eosinophils Percent Auto 2.6 % (0-4.4); Hematocrit 38.2 % (42.0-52.0); Hemoglobin 13.1 g/dL (14.0-18.0); Immature Granulocyte Absolute 0.01 K/mm3 (0.00-0.031); Immature Granulocyte Percent A 0.2 % (0-0.5); Lymphocytes Absolute Auto 1.56 K/mm3 (0.9-3.2); Lymphocytes Percent Auto 28.6 % (18.3-44.2); Mean Corpuscular HGB Conc 34.3 g/dl (32-36); Mean Corpuscular Hemoglobin 31.6 pg (26-34); Mean Platelet Volume 8.6 fl (7.4-10.4); Monocytes Absolute Auto 0.6 K/mm3 (0.1-0.6); Monocytes Percent Auto 10.6 % (2.6-8.5); Neutrophils Absolute Auto 3.1 K/mm3 (1.3-6.7); Neutrophils Percent Auto 56.9 % (45.5-73.1); Platelet Count Result 325 k/mm3 (150-375); Red Blood Count 4.15 M/mm3 (4.6-6.20); Red Cell Distribution Width 11.2 % (11.5-14.5); White Blood Count 5.5 K/mm3 (4.5-10.0)
[2021-12-15 05:43] LABS: Alanine Aminotransferase 191 U/L (6-50); Alkaline Phosphatase 118 U/L (38-126); Anion Gap 9 mmol/L (8-16); Aspartate Amino Transferase 113 U/L (17-59); Bilirubin,Total 0.4 mg/dL (0.2-1.3); Blood Urea Nitrogen 13 mg/dL (9-20); Calcium 8.7 mg/dL (8.4-10.2); Carbon Dioxide 28 mmol/L (22-30); Chloride 103 mmol/L (98-107); Estimated CRCL calculation 116 ml/min; Estimated Glomerular Filt Rate > 60; Glucose 106 mg/dL (65-110); Potassium 3.7 mmol/L (3.4-5.0); Sodium 140 mmol/L (137-145)
[2021-12-15 06:00] VITALS: BP 118/76; PULSE 66; RESP 20; TEMP 36.3; O2SAT 99
--- NOTE | 2021-12-15 08:54 | PM.DS ---
DS: Admitting Diagnosis Discharge Date December 15, 2021 Admitting Diagnosis cellulitis DS: Discharge Diagnosis Discharge Diagnosis (1) Cellulitis of right thigh: Code(s): L03.115 - Cellulitis of right lower limb Status: Acute Assessment and Plan: Continue vancomycin and Rocephin, follow up on wound and blood cultures (2) Depression: Code(s): F32.A - Depression, unspecified Status: Acute Assessment and Plan: Continue Prozac (3) Allergic rhinitis: Code(s): J30.9 - Allergic rhinitis, unspecified Status: Acute Assessment and Plan: Continue Flonase, Claritin as needed, azelastine as needed (4) Transaminitis: Code(s): R74.01 - Elevation of levels of liver transaminase levels Status: Acute Assessment and Plan: incidental finding of significantly elevated LFTs, right upper quadrant ultrasound ordered, hepatitis panel negative, they are trending down so is safe to discharge, however, these will need to be followed up outpatient suspect the etiology is alcoholic liver disease, discussed extensively the patient needs to cut back on alcohol use if not completely eliminated (5) Hyperlipidemia: Code(s): E78.5 - Hyperlipidemia, unspecified Status: Acute Assessment and Plan: significant hyperlipidemia and light of suspected alcohol liver disease, will hold off on starting patient on a statin due to elevated LFTs at this time, will need defer to outpatient management for further care Plan DVT prophylaxis with Lovenox GI prophylaxis not indicated Code status full code DS: Summary Hospital Course Hospital Course: 36-year-old male who presented to the emergency department via private vehicle from home for evaluation of worsening cellulitis of the right thigh. Last Tuesday he noticed what appeared to be a pimple on the medial aspect of the right leg just above the knee. He assumed he was bitten by a spider the previous day while out fishing though he cannot be certain. The next day it had increased in size and was red and tender to touch. He was seen at a local urgent care and was prescribed Bactrim of which he states compliance however the area continued to increase in size and became more painful as the days progressed. He was seen in the ED at [facility] a couple of days ago after he developed a temperature of 101? and he was prescribed doxycycline to take in addition to the Bactrim. Unfortunately the area has not improved and in fact it has continued to spread. He is still running fevers and he came back in for evaluation. He is being admitted in this setting for IV antibiotics. He has no known history of MRSA. Patient's symptoms completely resolved on IV vancomycin and Ancef. There is some remaining redness, but no purulence, fluctuance or significant erythema. Wound cultures were taken in did show MRSA sensitive to doxycycline. Will be discharged on doxycycline and to complete a 10-14 day course depending on symptom resolution. While the patient was here, he was found to have elevated LFTs. These were investigated further with a hepatitis panel, which came back negative. He also had a right upper quadrant ultrasound that showed hepatic steatosis. Alcohol cessation and diet management was recommended. He is to follow up with his outpatient primary care doctor for further recommendations and to follow the LFTs to confirm resolution. Additionally, his lipid panel was checked and was quite elevated. Statin is unable to be started at this time due to the LFT elevation, will defer to outpatient primary care for further management of his hyperlipidemia and elevated LFTs. Repeat CMP recommended in a week. Time Spent with Patient Time attestation: Total time spent providing and/or coordinating discharge services: Exam Narrative: General: No acute distress, alert and oriented per baseline HEENT: Atraumatic, normocephalic, mucous membranes moist C
[2021-12-15] MEDS: DOXYCYCLINE HYCLATE 100 MG TABLET PO (09:56)
[2021-12-15] MEDS: FLUTICASONE PROPIONATE 0.05% NA SPR 16 GM BTL (*BKC) 1 SPRAY NASAL (09:57)
[2021-12-15] MEDS: LORATADINE 10 MG TABLET PO (09:57)
[2021-12-15] MEDS: FLUoxetine HCL 20 MG CAPSULE 60 MG PO (09:57)
== END 2021-12-15 10:40 | disposition home or self-care (01) | DRG 603 ==
LOC: ANHED 17:19 → ANH2MED 17:27
PROVIDERS: Physician Assistant; Admitting Provider Student in an Organized Health Care Education/Training Program; Emergency Provider Emergency Medicine; PCP Family Medicine; Visit Provider Student in an Organized Health Care Education/Training Program
DX: L03.115 Cellulitis of right lower limb (principal); B95.62 Methicillin resistant Staphylococcus aureus infection as the cause of diseases classified elsewhere; F32.A Depression, unspecified; J30.9 Allergic rhinitis, unspecified; E78.5 Hyperlipidemia, unspecified; K70.9 Alcoholic liver disease, unspecified; F10.90 Alcohol use, unspecified, uncomplicated; G47.33 Obstructive sleep apnea (adult) (pediatric); Z23 Encounter for immunization; Z87.891 Personal history of nicotine dependence; Z79.899 Other long term (current) drug therapy
CPT/HCPCS: 36415; 73552; 76705; 80048; 80053; 80074; 80202; 83605; 83735; 85025; 85027; 85652; 86140; 87040; 87070; 87147; 87181; 87186; 87205; 90471; 90686; 96365; 96366; 96367; 96372; 99285; A9270; G0008; G0378; J0690; J1650; J3370

== ENCOUNTER → 2022-03-23 14:14 | Outpatient (CLI) | payer OTHER, SELFPAY ==
--- NOTE | ~2022-03-23 | CT_ITS ---
EXAMINATION: CT sinus wo con DATE: 03/23/2022 14:28 INDICATION: Nasal congestion. Chronic sinusitis. History of sinus surgery TECHNIQUE: Computed tomography (CT) of the paranasal sinuses was performed without intravenous contra st. The dose-length product (DLP) was 297.70 mGy-cm. Iterative reconstruction was used. COMPARISON: None FINDINGS: There is normal development and pneumatization of the paranasal sinuses. Mild mucosal thick ening in all paranasal sinuses. The mastoid air cells are clear. Mucosal thickening occludes both of the surgically widened ostiomeatal units. Visualized soft tissues are unremarkable. IMPRESSION: 1. 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 2. Pansinus mucoperiosteal change. Reviewed, dictated and finalized at location K. FIC CONTROL OPERATOR
== END ==
PROVIDERS: PCP Nurse Practitioner; Visit Provider Otolaryngology
DX: J34.89 Other specified disorders of nose and nasal sinuses (principal); J32.4 Chronic pansinusitis
CPT/HCPCS: 70486

== ENCOUNTER 2023-04-06 09:35 | Emergency (ER) | payer OTHER, SELFPAY ==
[2023-04-06 09:40] VITALS: BP 153/92; PULSE 94; RESP 16; TEMP 37.3; O2SAT 97
--- NOTE | 2023-04-06 10:22 | ED.SKABFB ---
HPI - Skin/Abscess/Foreign Bdy General Chief complaint: Skin/Abscess/Foreign Body Stated complaint: Lip Swelling/Skin Sore Time Seen by Provider: 04/06/23 10:20 Source: patient, RN notes reviewed and old records reviewed Mode of arrival: ambulatory Limitations: no limitations History of Present Illness HPI narrative: 37-year-old male presents to [facility] with complaints 2 day duration lesion under his nose which is slightly red swollen with some crusty yellowish drainage for the past 36 hours. Patient states he has noted some increased redness and did notice some yellowish drainage from area after applying warm compress. Patient states the area is tender and has been taking Tylenol and Ibuprofen and has applied ice to area. Last dose of Ibuprofen at 0615 today. Patient does have mustache. MD complaint: lesion (under his nose) Onset (ago): hour(s) Severity scale (1-10): 6 Treatments prior to arrival: NSAID and other (Warm compresses, tylenol and ice) Related Data Home Medications Medication Instructions Recorded Confirmed fluoxetine 40 mg capsule 40 mg PO DAILY 04/06/23 04/06/23 Allergies Allergy/AdvReac Type Severity Reaction Status Date / Time No Known Allergies Allergy Verified 04/06/23 10:06 Review of Systems Review of Systems: CONSTITUTIONAL: Denies fever, chills, or sweats. CARDIOVASCULAR: Denies chest pain, palpitations, or edema. RESPIRATORY: Denies cough or dyspnea. SKIN: Reports small lesion under nose that is red tender yellowish drainage MUSCULOSKELETAL: Denies joint pain or myalgia. NEUROLOGIC: Denies headache, numbness, or weakness. All systems reviewed & are unremarkable except as noted in HPI and below PMFSH Past Medical History Medical History Allergic rhinitis Depression Normal cardiac stress test Obstructive sleep apnea Surgical History Surgical History History of appendectomy (2014) History of open reduction and internal fixation (ORIF) procedure (2002) Repair right femur fracture. History of sinus surgery (03/23/20) History of toe surgery (2014) Right hallux cheilectomy and MTP arthrodesis. [place] teeth extracted Family History Family History Father Family history of cardiovascular disease Hypertension Grandparent Malignant neoplasm of prostate Hypertension Grandparent No problems noted. Social History Social History Social History: Surrogate medical decision maker: Kari Pena, spouse. Code status: Full code. Caffeine-occasionally Smoking packs per day: 1 Smoking cigarettes per day: 20.0 Years smoked: 7 Smoking pack-years: 7.00 Smoking status: Former smoker Tobacco type: cigarettes Second hand tobacco smoke exposure: No Additional smoking assessment comments: Quit November 2019. Alcohol intake: current Drinks per week: 28 Alcohol use details: He drinks beer several nights a week. Substance use: never Substance use type: does not use Lack of Transportation: No Lack of Food: Never True Current Housing: I Have Housing Concerned About Future Housing: No Difficulty Paying Gas/Electric Bills: No Difficulty Paying for Meds: No Currently Unemployed: No Education: Decline to Answer Difficulty w/ Childcare or Family Care: No Living arrangements: with family Additional living arrangements comments: Lives in [place] with spouse and children. Occupation/Education: occupation Spiritual care concerns: No Comments At time of signature, agree with nursing past medical, surgical, social and family history. There is no relevant family history pertinent to the presenting complaint Exam Narrative: GENERAL: Well-appearing, well-nourished, and in no acute distress. HEAD: Normocephalic,
== END 2023-04-06 10:40 | disposition home or self-care (01) ==
PROVIDERS: Emergency Provider Registered Nurse; PCP Nurse Practitioner
DX: L73.9 Follicular disorder, unspecified (principal); Z87.891 Personal history of nicotine dependence; F32.A Depression, unspecified
CPT/HCPCS: 99213; G0463

== ENCOUNTER 2023-07-12 06:24 | Emergency (ER) | payer OTHER, SELFPAY ==
[2023-07-12 06:25] VITALS: BP 152/91; PULSE 119; RESP 16; TEMP 37.4; O2SAT 99
[2023-07-12 06:39] VITALS: BP 156/104; PULSE 109; RESP 16; O2SAT 95
--- NOTE | 2023-07-12 07:53 | ED.GENADULT ---
HPI - General Adult General Chief complaint: Skin/Abscess/Foreign Body Stated complaint: wound, fever? Time Seen by Provider: 07/12/23 07:03 History of Present Illness HPI narrative: 37-year-old male presents emergency department for evaluation for left facial swelling. Patient does have history of MRSA and previous sepsis. Patient noticed some facial swelling yesterday did present to Urgent Care were started on antibiotics. Patient states the facial swelling has improved at this site and the tenderness has improved. When patient woke up this morning notice he did have some swelling around the eye, this appears to be dependent edema. Related Data Home Medications Medication Instructions Recorded Confirmed fluoxetine 40 mg capsule 40 mg PO DAILY 04/06/23 04/06/23 Allergies Allergy/AdvReac Type Severity Reaction Status Date / Time No Known Allergies Allergy Verified 07/12/23 06:33 Review of Systems Review of Systems: All systems reviewed & are unremarkable except as noted in HPI and below PMFSH Past Medical History Medical History Allergic rhinitis Depression Normal cardiac stress test Obstructive sleep apnea Surgical History Surgical History History of appendectomy (2014) History of open reduction and internal fixation (ORIF) procedure (2002) Repair right femur fracture. History of sinus surgery (03/23/20) History of toe surgery (2014) Right hallux cheilectomy and MTP arthrodesis. [place] teeth extracted Family History Family History Father Family history of cardiovascular disease Hypertension Grandparent Malignant neoplasm of prostate Hypertension Grandparent No problems noted. Social History Social History Social History: Surrogate medical decision maker: Kari Pena, spouse. Code status: Full code. Caffeine-occasionally Smoking packs per day: 1 Smoking cigarettes per day: 20.0 Years smoked: 7 Smoking pack-years: 7.00 Smoking status: Former smoker Tobacco type: cigarettes Second hand tobacco smoke exposure: No Additional smoking assessment comments: Quit November 2019. Alcohol intake: current Drinks per week: 28 Alcohol use details: He drinks beer several nights a week. Substance use: never Substance use type: does not use Lack of Transportation: No Lack of Food: Never True Current Housing: I Have Housing Concerned About Future Housing: No Difficulty Paying Gas/Electric Bills: No Difficulty Paying for Meds: No Currently Unemployed: No Education: Decline to Answer Difficulty w/ Childcare or Family Care: No Living arrangements: with family Additional living arrangements comments: Lives in [place] with spouse and children. Occupation/Education: occupation Spiritual care concerns: No Exam Narrative: APPEARANCE: Well appearing, no pain, no distress, well-nourished. HEAD: normocephalic, atraumatic. EYES: Abscess on left face, some left-sided facial swelling NOSE: Normal no drainage EARS:TMS clear with good light reflex. THROAT: Pharynx clear, no exudate. NECK: Supple. No adenopathy, no masses. RESPIRATORY: Airway patent, respirations nonlabored. Clear to auscultation bilaterally, no rales, rhonchi, wheezing. CARDIOVASCULAR: Regular rate and rhythm without murmurs rubs or gallops. ABDOMINAL: Soft, nontender, nondistended, normal bowel sounds MUSCULOSKELETAL: Moves all extremities. Strength/ROM intact, No edema, No calf tenderness. NEURO: Alert. Cranial nerves II through XII intact. Good gait. Good coordination SKIN: Erythema to left face Course Course Emergency Course: Patient is currently taking Bactrim it was discharged home to continue his antibiotics. Vital Signs Vital signs: Vital Signs
[2023-07-12 08:26] VITALS: BP 166/93; PULSE 112; RESP 15; O2SAT 100
== END 2023-07-12 08:42 | disposition home or self-care (01) ==
PROVIDERS: Emergency Provider Emergency Medicine; PCP Family Medicine
DX: L02.01 Cutaneous abscess of face (principal); G47.33 Obstructive sleep apnea (adult) (pediatric); F32.A Depression, unspecified; Z86.14 Personal history of Methicillin resistant Staphylococcus aureus infection; Z87.891 Personal history of nicotine dependence
CPT/HCPCS: 99281

== ENCOUNTER 2025-01-13 08:50 | Emergency (ER) | payer OTHER, SELFPAY ==
[2025-01-13 08:55] VITALS: BP 171/97; PULSE 95; RESP 16; TEMP 36.4; O2SAT 99
--- NOTE | 2025-01-13 09:31 | ED_ITS ---
HPI - Wound/Laceration General Chief Complaint: Wound/Laceration Stated Complaint: L FACE WOUND, HX OF ADMISSION FOR INFX Time Seen by Provider: 01/13/25 09:21 Source: patient Mode of arrival: ambulatory Limitations: no limitations History of Present Illness HPI narrative: This is a 39-year-old male with no significant past medical history who presents to the ED for facial infection. Patient states that for the past few days he noticed a small pimple to his left cheek. It did come to a head yesterday so he was able to pop and did have some drainage. This morning, he woke up, and there was significant swelling to his left face. Denies any pain to his teeth. Denies change in vision. Denies fevers, chills. He was previously admitted for a severe folliculitis to his right thigh and was eventually on IV vancomycin was in the hospital for 4 days. Related Data Home Medications ?Medication ?Instructions ?Recorded ?Confirmed ?Last Taken ?Type fluoxetine 40 mg capsule 40 mg PO DAILY 04/06/23 07/11/21 Unknown History Allergies Allergy/AdvReac Type Severity Reaction Status Date / Time No Known Allergies Allergy Verified 01/13/25 08:51 Review of Systems Review of Systems: Gen.: Denies fevers or chills Eyes: Denies eye pain or visual change ENT: Denies congestion Respiratory: Denies shortness of breath or cough CV: Denies chest pain or palpitations GI: Denies abdominal pain nausea, emesis or diarrhea denies burning, urgency, frequency or hematuria Musculoskeletal: Denies back pain or muscle pain Neuro: Denies numbness, tingling, weakness or focal weakness Skin: As per HPI Except as documented, all other systems reviewed and negative [facility] Past Medical History Medical History Allergic rhinitis Depression Obstructive sleep apnea Normal cardiac stress test Surgical History Surgical History History of sinus surgery (03/23/20) History of open reduction and internal fixation (ORIF) procedure (2002) Repair right femur fracture. History of toe surgery (2014) Right hallux cheilectomy and MTP arthrodesis. [place] teeth extracted History of appendectomy (2014) Family History Family History Father Family history of cardiovascular disease Hypertension Grandparent Malignant neoplasm of prostate Hypertension Grandparent No problems noted. Social History Social History Social History: Surrogate medical decision maker: Kari Pena, spouse. Code status: Full code. Caffeine-occasionally Smoking packs per day: 1 Smoking cigarettes per day: 20.0 Years smoked: 7 Smoking pack-years: 7.00 Smoking status: Former smoker Tobacco type: cigarettes Second hand tobacco smoke exposure: No Additional smoking assessment comments: Quit November 2019. Alcohol intake: current Drinks per week: 28 Alcohol use details: He drinks beer several nights a week. Substance use: never Substance use type: does not use Lack of Transportation: No Lack of Food: Never True Current Housing: I Have Housing Concerned About Future Housing: No Difficulty Paying Gas/Electric Bills: No Difficulty Paying for Meds: No Currently Unemployed: No Education: Decline to Answer Difficulty w/ Childcare or Family Care: No Living arrangements: with family Additional living arrangements comments: Lives in [place] with spouse and children. Occupation/Education: occupation Spiritual care concerns: No Exam Narrative: APPEARANCE: No acute distress, nontoxic, resting in bed HEENT: Normocephalic, atraumatic. Small eschar with 1 x 1 cm area of induration over the left maxilla with a small amount of erythema. Tenderness to palpation. No dental involvement. RESPIRATORY: No respiratory distress CARDIOVASCULAR: Appears well perfused ABDOMINAL: Nondistended MUSCULOSKELETAl: Moves all extremities. No obvious deformities NEURO: Awake and alert. SKIN:: Warm, dry. As above PSYCHIATRIC: Normal affect/mood, Course Vital Signs Vital signs: Vital Signs Temperature 97.5 F L 01/13/25 08:55 Pulse Rate 95 01/13/25 08:55 Respiratory Rate 16 01/13/25 08:55 Blood Pressure 171/97 H 01/13/25 08:55 Pulse Oximetry 99 01/13/25 08:55 Oxygen Delivery Room Air 01/13/25 08:55 Temperature 97.7 F 01/13/25 09:40 Pulse Rate 82 01/13/25 09:40 Respiratory Rate 16 01/13/25 09:40 Blood Pressure 168/73 H 01/13/25 09:40 Pulse Oximetry 99 01/13/25 09:40 Oxygen Delivery Room Air 01/13/25 08:55 MDM - Wound/Laceration MDM Narrative Medical decision making narrative: 39-year-old male Presenting for facial wound. On initial evaluation patient was in no acute distress afebrile, hemodynamic stable. Differentials include but are not limited to: Cellulitis, abscess, dental infection, laceration Notable exam findings: There is swelling over the left cheek. Erythema and induration some mild tenderness palpation. Patient likely has a significant cellulitis. He apparently has a history of a folliculitis that was treated for MRSA but was not officially diagnosed with MRSA. Given the possible history, he will be started on Bactrim. He was advised follow-up with his PCP in the next week for re-evaluation. Patient was agreeable to this plan. Given strict return precautions. Medical Records Attestation: I reviewed the patient's medical records. Discharge Plan Discharge Clinical Impression: Cellulitis Qualifiers: Site of cellulitis: face Qualified Code(s): L03.211 - Cellulitis of face Patient Disposition: Home Condition: Stable Instructions: Antibiotic Form, Cellulitis (ED) Additional Instructions: You likely have a cellulitis. Take Bactrim as prescribed. Apply ice to your face 50 minutes on 15 minutes off to assist with swelling. He may take Tylenol and ibuprofen for the pain. Follow-up with your PCP in the next few days for re-evaluation. Return to the ED for any new or worsening symptoms. For pain, discomfort or temperature greater than or equal to 100.8 ?F please alternate the following 2 medications as needed. First medication- acetamin ophen/Tylenol- 1000mg every 6-8 hours as needed for above indications. Second medication- ibuprofen/Motrin-600mg every 6-8 hours as needed for above indication. Patient Language: Mongolian Prescriptions: New sulfamethoxazole-trimethoprim [Bactrim DS] 800-160 mg tablet 1 tablet PO Q12H 7 Days Qty: 14 0RF No Action fluoxetine 40 mg Capsule 40 mg PO DAILY cephalexin 500 mg tablet 500 mg PO Q8H Qty: 30 0RF mupirocin 2 % ointment 1 applic topical TID Qty: 22 1RF Follow-up/Referrals: Aden Olivier MD [Primary Care Provider, Family Practice] Stand Alone Forms: Work/School Release IP
[2025-01-13] MEDS: SULFAMETHOXAZOLE/TRIMETHOPRIM 800/160 MG DS TABLET 1 TAB PO (09:36)
[2025-01-13 09:40] VITALS: BP 168/73; PULSE 82; RESP 16; TEMP 36.5; O2SAT 99
== END 2025-01-13 09:41 | disposition home or self-care (01) ==
PROVIDERS: Emergency Provider Student in an Organized Health Care Education/Training Program; PCP Family Medicine
DX: L03.211 Cellulitis of face (principal); Z87.891 Personal history of nicotine dependence
CPT/HCPCS: 99283; A9270